=== PATIENT | male | born 1935 | race Caucasian/White ===

== ENCOUNTER → 2022-10-04 | Outpatient (CLI) | payer MEDICARE ==
--- NOTE | 2022-10-08 21:23 | MR ---
EXAMINATION TYPE: MR brain wo/w con DATE OF EXAM: 10/04/2022 9:20 AM CLINICAL INDICATION:Male, 87 years old with history of Malignant neoplasm of upper lobe; Hx of Lung C a, malignant neoplasm COMPARISON: Pet/CT 09/23/2022 TECHNIQUE: Multi planar, multi sequence imaging was performed through the brain including: T1, T2, In version recovery, susceptibility weighted imaging and gradient echo imaging and Diffusion weighted im aging. The patient was then given intravenous contrast and multi planar, T1 fat-saturation images wer e obtained. IV Contrast: 5 cc Gadavist FINDINGS: Fluid lesion within the left middle cranial fossa mild mass effect upon the adjacent insular cortex m easuring roughly 5.8 x 3.7 cm. This follows CSF on all sequences. There is mass effect upon the front al and temporal lobes. This is similar to prior PET/CT finding. Roughly 6 mm rightward midline shift. There is a focus of enhancement within the right calvarium measures 6 mm series 803 image 29 and 802 image 27. Diffusion-weighted imaging shows no evidence of restricted diffusion to suggest acute/subacute infarc t. Intracranial arterial flow voids are maintained. Midline structures show no abnormality. Scattered foci of high T2 signal intensity are seen within the periventricular white matter. The susceptibilit y weighted images do not reveal any evidence for micro-hemorrhage. After administration of gadolinium , no abnormal enhancement is seen within the intra-axial structures.. Paranasal sinuses and mastoid air cells: No significant paranasal sinus disease. Visualized orbits: Orbital contents are intact. IMPRESSION: 1. Left CSF signal following lesion within the left middle cranial fossa extending superiorly with ma ss effect upon the temporal and frontal lobes favored represent arachnoid cyst. There is [address] subfalcine herniation/midline shift. 2. Indeterminate enhancing focus within the right calvarium measuring 6 mm. Attention follow-up imagi ng. This is non the [id number] on prior PET. Given no other bony osseous metastatic disease is dorcas btful that its metastatic disease. 3. No evidence of acute/subacute infarct, or abnormal intra-axial enhancement. 4. Nonspecific white matter changes, likely related to small vessel ischemic disease
== END | disposition home or self-care (01) ==
LOC: RADMRIMAIN 08:30
PROVIDERS: ATTEND Internal Medicine Hematology & Oncology
DX: C34.11 Malignant neoplasm of upper lobe, right bronchus or lung (principal); G93.89 Other specified disorders of brain; R90.82 White matter disease, unspecified
CPT/HCPCS: 70553; A9585